=== PATIENT | female | born 1990 | race Caucasian/White ===

== ENCOUNTER 2018-04-21 05:40 | Day surgery (SDC) | payer BC ==
[~2018-04-21] VITALS: Ht 162.6 cm; Wt 60.1 kg
[2018-04-21] MEDS ORDERED: LOESTRIN1.5/30 21DAY PO (06:00)
[2018-04-21 06:12] VITALS: BP 120/75; PULSE 88; TEMP 98.5
[2018-04-21] MEDS ORDERED: NORCO 325 MG-51 TAB PO (08:41)
[2018-04-21] MEDS ORDERED: DULCOLAX STOOL100 MG PO (08:41)
[2018-04-21] MEDS ORDERED: MOTRIN 600600 MG/TAB PO (08:41)
[2018-04-21] MEDS ORDERED: METAMUCIL3.4 GM/DOS PO (08:42)
[2018-04-21 08:50] VITALS: BP 103/56; PULSE 76; TEMP 98.5
[2018-04-21 09:05] VITALS: BP 110/59; PULSE 63
[2018-04-21 09:20] VITALS: BP 104/62; PULSE 68
[2018-04-21 09:35] VITALS: BP 102/62; PULSE 65
[2018-04-21 10:05] VITALS: BP 100/56; PULSE 75
== END 2018-04-21 10:27 | disposition home or self-care (01) ==
LOC: SDCO 05:40
DX: K60.3 Anal fistula (principal); J45.909 Unspecified asthma, uncomplicated
CPT/HCPCS: J1100; J1885; J2405; J2704; J3010; J7120

== ENCOUNTER 2019-04-16 20:10 | Inpatient (IN) | payer BC ==
[2019-04-16] VITALS (8 sets, daily range): BP systolic 108–125; BP diastolic 61–80; PULSE 66–79; TEMP 98.2
[~2019-04-16] VITALS: Ht 162.6 cm; Wt 68.2 kg
[~2019-04-16 20:10] MED LIST: DULCOLAX STOOL100 MG PO; LOESTRIN1.5/30 21DAY PO; METAMUCIL3.4 GM/DOS PO; MOTRIN 600600 MG/TAB PO; NORCO 325 MG-51 TAB PO
--- NOTE | 2019-04-16 20:30 | NUR ---
2030 G1L0 34.3 WEEK GEST TO LR4 WITH C/O SROM AT 1999. LEAKING LARGE AMOUNT CL FLUID. SVE DONE WITH POSITIVE AMNIOTRACE /-2. EFM ON WITH CONTRACTIONS NOTED EVERY 2-4 MINUTES BUT NOT FELT BY PT. 2039 DR CURTIS NOTIFIED AND ORDERS RECEIVED TO START IV FLUIDS AND START ABX.
--- NOTE | 2019-04-16 21:10 | NUR ---
2109 IV FLUIDS STARTED AND IV ANTIBIOTICS STARTED. ADM ASSESSMENT DONE. DR CURTIS IN TO VISIT AND SPEC EXAM DONE. LARGE AMOUNT OF AMNIOTIC FLUID NOTED ON EXAM.
[2019-04-16 21:19] LABS: BASO % 0.4 % (0.0-2.0); EOS % 0.4 % (0-4.0); GRAN # 7.9 (1.4-6.5); GRAN % 71.6 % (42.2-75.2); HEMATOCRIT 37.5 % (37.0-47.0); LYMPH # 2.4 (1.2-3.4); LYMPH % 21.5 % (20.0-51.0); MEAN CELL VOLUME 91 fl (80.0-100.0); MEAN CORPUSCULAR HEMOGLOBIN 32 pg (27.0-31.0); MEAN CORPUSCULAR HGB CONC 35 g/dl (33.0-37.0); MEAN PLATELET VOLUME 10.7 fl (7.4-10.4); MONO # 0.6 (0.1-0.6); MONO % 5.7 % (1.7-9.3); PLATELET COUNT 201 K/mm3 (130-400); RED BLOOD COUNT 4.11 M/mm3 (4.10-5.30); REDCELL DISTRIBUTION WIDTH-CV 11.9 % (11.5-14.5)
[2019-04-16] MEDS ORDERED: PRILOSEC 20MG20 MG PO (21:31)
[2019-04-16] MEDS ORDERED: CONCEPT DHA1 CAP PO (21:31)
[2019-04-17] VITALS (32 sets, daily range): BP systolic 100–124; BP diastolic 57–80; PULSE 57–82; TEMP 97.9–98.2
--- NOTE | 2019-04-17 00:45 | NUR ---
0033- Olu BOYLE CRNA IN ROOM FOR EPIDURAL PLACEMENT 0034- PT REPOSITIONED TO SITTING, BP CUFF TO 5 MINUTES, PULSE OX IN PLACE. 0041- SINGLE SHOT GIVEN BY Olu BOYLE CRNA, PT TOLERATED WELL 0045- PT REPOSITIONED TO SEMIFOWLERS.
--- NOTE | 2019-04-17 04:15 | NUR ---
0341- SVE PERFORMED DUE TO 3 LATE DECELERATIONS, PT COMPLETE/+3. REMAINS COMFORTABLE WITH EPIDURAL. 0343- DR CURTIS NOTIFIED OF IMPENDING DELIVERY, WILL COME FOR DELIVERY. 0346- Olu BOYLE CRNA NOTIFIED OF IMPENDING DELIVERY, WILL COME TO UNIT FOR DELIVERY. 0347- FISHER DC'D, 200MLS YELLOW URINE OUT. PERICARE PERFORMED. 0359- DR. CURTIS IN ROOM FOR DELIVERY. 0402- SPONTANEOUS VAGINAL DELIVERY OF VIABLE BABY BOY. BABY TO MOTHER'S ABDOMEN. CORD CLAMPED BY DR. CURTIS, CUT BY FOB. CARE OF BABY ASSUMED BY Olu BAR, RN. 0405- SPONTANEOUS DELIVERY OF INTACT PLACENTA. PITOCIN STARTED PER PROTOCOL. PLACENTA TO GO TO PATHOLOGY. DR. CURTIS BEGINS REPAIR OF 1ST DEGREE LACERATION. 0415- RECOVERY STARTED.
--- NOTE | 2019-04-17 09:00 | NUR ---
0900- PATIENT TRANSFERRED TO WHEELCHAIR PER 2 ASSIST. LEFT LEG STIKLL FELLING NUMB. 1000- PATIENT AMBULATED TO BATHROOM THEN TO WHEELCHAIR THEN WHEELED TO NURSERY TO VISIT
[2019-04-18 06:45] VITALS: BP 116/76; PULSE 66; TEMP 98
[2019-04-18 07:56] LABS: HEMATOCRIT 37.7 % (37.0-47.0); HEMOGLOBIN 12.8 g/dl (12.5-16.0)
[2019-04-18 17:15] VITALS: BP 126/83; PULSE 64; TEMP 98.3
[2019-04-18] MEDS ORDERED: MOTRIN 800800 MG/TAB PO (18:11)
[2019-04-18 19:30] VITALS: BP 121/78; PULSE 57; TEMP 97.9
[2019-04-19 07:00] VITALS: BP 112/80; PULSE 77; TEMP 98
--- NOTE | 2019-04-19 10:17 | NUR ---
Initial visit attempt; Patient indisposed, [employer] left card of congratulations for the of her son and information regarding the availability of spiritual care at [facility].
--- NOTE | 2019-04-19 12:46 | NUR ---
PT DISCHARGE INFO GIVEN AT THIS TIME. PT UNDERSTANDS BOARDER STATUS. NO QUESTIONS AT THIS TIME.
== END 2019-04-19 12:47 | disposition home or self-care (01) | DRG 807 ==
LOC: LDRO 20:10 → LDR 21:19 → OB 04-17 15:16
PROVIDERS: Obstetrics & Gynecology; ADMIT Obstetrics & Gynecology
PROC: 10E0XZZ Delivery of Products of Conception, External Approach (ICD-10-PCS; principal; 2019-04-17)
PROC: 0HQ9XZZ Repair Perineum Skin, External Approach (ICD-10-PCS; 2019-04-17)
PROC: 3E033VJ Introduction of Other Hormone into Peripheral Vein, Percutaneous Approach (ICD-10-PCS; 2019-04-17)
DX: O42.013 Preterm premature rupture of membranes, onset of labor within 24 hours of rupture, third trimester (principal); Z37.0 Single live birth; O70.0 First degree perineal laceration during delivery; J45.909 Unspecified asthma, uncomplicated; K90.0 Celiac disease; O76 Abnormality in fetal heart rate and rhythm complicating labor and delivery; O99.62 Diseases of the digestive system complicating childbirth; O99.52 Diseases of the respiratory system complicating childbirth; Z3A.34 34 weeks gestation of pregnancy; Z23 Encounter for immunization
CPT/HCPCS: J0290; J2590; J2795; J7120

== ENCOUNTER → 2019-04-30 | Outpatient (CLI) | payer BC ==
[~2019-04-30] MED LIST changes: +CONCEPT DHA1 CAP PO; +MOTRIN 800800 MG/TAB PO; +PRILOSEC 20MG20 MG PO
--- NOTE | 2019-04-30 13:01 | NUR ---
Pt, Renetta Alvarado, presents for outpatient consult with 13 day old baby boy, Jose Alvarado, to evaluate as he was born and not at time of discharge from hospital. She is accompanied by her mother. Serjio was born on [birth year] at 34.6 weeks gestation. weight was 5#6oz (2438 gms). He was discharged on 04/26/19 and weighed 5#2.4oz (2335 gms). He is currently being bottle fed about 60ml fortified breastmilk 8 times daily. Renetta is pumping upto 80ml per feeding, but has started symptoms of mastitis in the right breast and supply is a little lower. Report of mastitis sx reported to her OB, Dr. Mane, which include a reddened area of the right breast between the 11 oclock and 2 oclock location. Pt denies fever, but the location is warm and tender. She currently takes motrin for other discomforts. Pt is guided on position and support of baby in football hold on the right side. He has a little trouble keeping his jaw open well with latch, but with LC keeping his chin open he latches and starts swallows. Cross cradle is used on the left side, pt is advised how she can catch the chin for latching and they come together quickly. After nursing Jose has a weight gain of 14 gms on the right and 24 gms on the left for a total of 38 gms (1.3 oz). Jose is then fed 30ml EBM by bottle. POC: Offer breast every other feeding, supplementing 30ml if his feeding is similar to this feeding, and 60 ml if he does less work. Continue pumping each feeding and fortifying the EBM until his BF effort is more consistent. Contact Dr. Mane re: mastistis if she does not hear from her in a timely fashion. F/U: one week with this LC to evaluate /milk transfer. Questions invited and answered, Pt verbalizes understanding.
== END ==
LOC: LAC 12:21
DX: Z39.1 Encounter for care and examination of lactating mother (principal); Z71.89 Other specified counseling

== ENCOUNTER → 2019-05-07 | Outpatient (CLI) | payer BC ==
--- NOTE | 2019-05-07 12:34 | NUR ---
Pt, Renetta Alvarado present for follow up consult with 20 day old baby boy, Jose Alvarado, for a evaluation. They were seen one week ago by this LC. Jose was born on [birth year] at 34.6 weeks gestation and weighed 5#6oz (2438 gms). At our previous consult Jose weighed 5#5.7 (2430 gms). Today Jose weighs 6#4.3oz (2844 gms). Jose has been 3x/day, every other in the daytime, followed by about 40ml by bottle. At the other feedings he is drinking 80-90ml fortified breastmilk. Voids and stools are WNL. Pt is pumping each feeding, collecting 60-70ml if not first, and about 40ml if breastfed prior. AFter bilaterally Jose had a total weight gain of 34 gms (1.2oz). He drinks about 40ml EBM by bottle after. Pt states Dr. Cramer has okayed discontinuing fortifying EBM once he is above weight. Pt desires to do this now, after the last weeks weight gain. Also discussed power pumping, getting smaller shield for her pump, and herbal supplements to help build milk supply. POC: Continue q other at daytime feedings, followed by about 40ml EBM. Continue bottle feeding at other feedings with EBM, without fortifyier. F/U: FridayMay 19 with this LC. Questions invited and answered.
== END ==
LOC: LAC 11:58
DX: Z39.1 Encounter for care and examination of lactating mother (principal); Z71.89 Other specified counseling

== ENCOUNTER → 2019-05-17 | Outpatient (CLI) | payer BC ==
--- NOTE | 2019-05-17 13:37 | NUR ---
Pt, Renetta Alvarado, presents for a follow-up consult with one month old baby boy, Jose Alvarado. Jose was born at 34.6 weeks gestation and they have been working towards . Jose was born on [birth year] and weighed 5#6oz. He was seen 10 days ago by this LC and weighed 6#4.3oz (2844 gms). Today he weighs 7#1.5oz (3218 gms), for a gain of 13.2oz over 10 days. Pt states she stopped putting Jose to breast 1.5 days ago because he was struggling with latching and fussy at the breast. Jose continues to eat 8 times daily, taking about 100ml per feeding of EBM. He is no longer getting fortified BM. Voids and stools are WNL. Pt pumps 8 times daily and collects 80-100ml per pumping. Jose latches here without difficulty, has a 34 gms weight gain after the left breast after about 13 minutes of nursing and from the right a 14 gms gain. Pt asks about trying SNS since Jose seems to lose interest and fall asleep at the breast. Equipment for SNS prepared with EBM but Jose not very interested in re-latching. For the short time he was there he took 7ml via SNS and 1gm additional weight gain. Total intake at this feeding was 48ml, 40 from breast s SNS, 1 from breast with SNS and 7 from SNS. Pt agrees to continue feeding plan, allowing Jose a couple more weeks to see if transfer improves. Reasons for decreased milk transfer discussed, hopeful that a little more time will help. Jose appears to have good tognue movement, but pt states he does not keep a pacifier in his mouth. POC: Continue offering the breast prn and follow with 40-50ml EBM by bottle. Continue pumping each feeding, and bottle feeding ~100ml if not breastfed first. F/U: Anticipate next week at walk-in clinic. Pt verbalizes understanding, questions invited and answered.
== END ==
LOC: LAC 13:15
DX: Z39.1 Encounter for care and examination of lactating mother (principal); Z71.89 Other specified counseling

== ENCOUNTER → 2019-06-01 | Outpatient (CLI) | payer BC ==
--- NOTE | 2019-06-01 14:53 | NUR ---
Pt, Renetta Alvarado, presents for walk-in clinic with 6.5 week old baby boy, Jose Alvarado, for a follow up evaluation. They have been seen in clinic a couple times because Jose was born premature and we have been monitoring his ability to transfer effectively. Jose was born on [birth year] at 34.6 weeks gestation and weighed 5#6oz (2438 gms). On 05/17/19 Jose weighed 7#1.5oz. Today his weight is 8#5.7oz (3792 gms). Currently Jose fed 6-7 times daily, 2x from the breast followed with 50-60ml EBM by bottle. Other feedings are EBM by bottle, 3-4oz in volume. She does need to use a little formula to complete his needs. Pt reports pumping 5x daily, collecting 90-150ml per session. After today Jose had a total weight gain of 2.4oz (66gms). He was still hungry and was then fed 40ml EBM by bottle. LC notes Jose may have a lip tie, information about resources provided. Pt may consider going to pumping and bottle feedings, but does see progress with . Suggested trying to eliminate the supplement after , and to expect more frequent feedings. [facility] to [facility] for rest pt desires. POC: continue feeding as they have been, consider more frequent and reduced supplement. F/U: clinic as desired, questions invited and answered.
== END ==
LOC: OLC 12:38
DX: Z39.1 Encounter for care and examination of lactating mother (principal); Z71.89 Other specified counseling